=== PATIENT | female | born 1995 | race Caucasian/White ===

== ENCOUNTER 2017-05-04 06:06 | Emergency (ER) | payer BC, OTHER ==
--- NOTE | 2017-05-04 06:20 | EDPHY ---
H & P Time Seen by Provider: 05/04/17 06:19 HPI/ROS: CC: Shortness of breath HPI: This 21-year-old female with no significant past medical history presents to the emergency department tonight complaining of shortness of breath. She has been sick with a runny nose and congestion for the last couple of days and last night she felt like her chest was burning and felt it was more difficult to breathe. She has had some pain in her throat radiating to bilateral ears. Her boyfriend has been sick recently as well. She has been taking over-the- counter NyQuil without significant relief. She has not been having a productive cough. She denies fever, headache, neck pain, palpitations, abdominal pain, body aches, leg swelling. She stopped taking control about a month ago but has been using condoms for protection. Her 1st day of her last menstrual period was 2 weeks ago. She denies . REVIEW OF SYSTEMS: Constitutional: No fever, no chills. Eyes: No discharge. ENT: See HPI. Respiratory: See HPI. Cardiac: See HPI. Gastrointestinal: No abdominal pain, no vomiting. Genitourinary: No hematuria. Musculoskeletal: No back pain. Skin: No rashes. Neurological: No headache. Past Medical/Surgical History: PMH: Denied PSH: Denied FH: Mother - Asthma NKDA Meds: OTC medications PRN Social History: Denies use of tobacco products or second hand smoke exposure, no alcohol, marijuana or other drug use. Employed in a body [employer]. Smoking Status: Never smoked Physical Exam: General Appearance: Alert, no distress. Eyes: Pupils equal and round no pallor or injection. ENT, Mouth: Mucous membranes are moist. No pharyngeal erythema or exudate. Uvula midline. Respiratory: There are no retractions, lungs are clear to auscultation. Cardiovascular: Regular rate and rhythm. No murmurs, gallops or rubs. Gastrointestinal: Abdomen is soft and nontender, no masses, bowel sounds normal. Neurological: Awake and alert, sensory and motor exams grossly normal. Skin: Warm and dry, no rashes. Musculoskeletal: Neck is supple nontender. Extremities are symmetrical, full range of motion. No calf swelling, warmth, cords or erythema. Psychiatric: Patient is oriented X 3, there is no agitation. DIFFERENTIAL DIAGNOSIS: After history and physical exam differential diagnosis was considered for but not limited to: URI, otitis media, pharyngitis, bronchitis, pneumonia. No concern for PE or DVT. Constitutional: Initial Vital Signs Temperature (C) 97.9 F 05/04/17 06:19 Heart Rate 75 05/04/17 06:19 Respiratory Rate 16 05/04/17 06:19 Blood Pressure 97/75 L 05/04/17 06:19 O2 Sat (%) 100 05/04/17 06:19 O2 Delivery Mode Room Air Allergies/Adverse Reactions: No Known Allergies Allergy (Unverified 05/04/17 06:19) Home Medications: Medication Instructions Recorded AZITHROMYCIN [Z-PACK] 250 mg PO DAILY #6 tab 05/04/17 predniSONE [predniSONE TAPER] 1 each PO .EDIT DOSE INSTRUCT #20 05/04/17 janene Medical Decision Making ED Course/Re-evaluation: The patient was seen and examined. Vital signs reviewed. Vital signs were normal with a normal heart rate and 100% oxygen saturations on room air. Her physical exam was not concerning. She was given an albuterol inhaler to help relieve her sensation of shortness of breath and the burning in her chest. She was advised to continue her [id number] medications and rest. If symptoms worsened such as increased ear pain, throat pain, productive cough she should start the antibiotic as prescribed. If her shortness of breath worsened she could consider starting the prednisone as prescribed. She should follow up with her primary care provider as needed or return to the emergency room sooner if any further problems or concerns. Departure - Departure Disposition: Home, Routine, Self-Care Clinical Impression: Acute bronchitis Condition: Good Instructions: Acute Bronchitis (ED) Additional Instructions: Only start the antibiotic if increased ear pain, throat pain, or productive cough. Only start the prednisone if wheezing or persistently feeling shortness of breath. Return to the ER if symptoms worsen as discussed (increased shortness of breath, increased chest pain, leg swelling, dizziness or any other concerns). Stand Alone Forms: Work Excuse Prescriptions: AZITHROMYCIN [Z-PACK] 250 mg PO DAILY #6 tab predniSONE [predniSONE TAPER] 1 each PO .EDIT DOSE INSTRUCT #20 ea
[2017-05-04 06:22] VITALS: BP 97/75; PULSE 75; RESP 16; TEMP 97.9; O2SAT 100
[2017-05-04] MEDS ORDERED: ALBUTEROL INH PREPACK MDI TAKEHOME ONE ×2 (06:29→06:48)
== END 2017-05-04 06:51 | disposition home or self-care (01) ==
LOC: CED 06:06
DX: J20.9 Acute bronchitis, unspecified (principal)